=== PATIENT | male | born 1960 | race Caucasian/White ===

== ENCOUNTER 2024-10-29 00:59 | Emergency (ER) | payer MEDICAID, OTHER ==
[~2024-10-29] VITALS: Ht 175.3 cm; Wt 68.2 kg
[~2024-10-29 00:59] MED LIST: QUET200T PO
[2024-10-29 01:10] VITALS: BP 147/87; PULSE 85; RESP 18; TEMP 97.7; O2SAT 99
== END 2024-10-29 03:38 | disposition left against medical advice (07) ==
LOC: EMS 01:02
DX: Z53.21 Procedure and treatment not carried out due to patient leaving prior to being seen by health care provider (principal)